=== PATIENT | female | born 1990 | race Caucasian/White ===

== ENCOUNTER 2018-05-16 17:57 | Emergency (ER) | payer OTHER ==
[2018-05-16] MEDS ORDERED: KETOROLAC 30 MG INJ IM (19:34)
[2018-05-16 19:45] LABS: URINE PH (Dip) POC 7.5 (5.0-8.5)
[2018-05-16 19:45] LABS: URINE BLOOD (Dip) POC 2+ (NEGATIVE); URINE GLUCOSE (Dip) POC Negative (NEGATIVE); URINE KETONES (Dip) POC Negative (NEGATIVE); URINE LEUKOCYTE EST (Dip) POC 1+ (NEGATIVE); URINE NITRITE (Dip) POC Negative (NEGATIVE); URINE TOTAL PROTEIN POC 1+ (NEGATIVE)
[2018-05-16 20:00] LABS: ADD MAN DIFF? NO
[2018-05-16 20:02] LABS: BASOPHIL # 0.1 10^3/ul (0.0-0.1); BASOPHILS % 0.7 % (0.0-2.0); EOSINOPHILS # 0.3 10^3/ul (0.0-0.5); EOSINOPHILS % 2.3 % (0.0-7.0); HEMATOCRIT 38.4 % (37.0-47.0); HEMOGLOBIN 12.5 g/dl (12.0-16.0); LYMPHOCYTES % 18.4 % (15.0-51.0); MEAN CORPUSCULAR HEMOGLOBIN 29.8 pg (29.0-33.0); MEAN CORPUSCULAR HGB CONC 32.6 g/dl (32.0-37.0); MEAN CORPUSCULAR VOLUME 91.4 fl (82.0-101.0); MEAN PLATELET VOLUME 9.5 fl (7.4-10.4); MONOCYTE # 0.6 10^3/ul (0.3-0.9); MONOCYTES % 5.4 % (0.0-11.0); NEUTROPHIL # 7.7 10^3/ul (1.6-7.5); NEUTROPHILS % 71.9 % (39.0-77.0); PLATELET COUNT 344 10^3/UL (140-415); RED CELL DISTRIBUTION WIDTH 13.1 % (11.5-14.5)
[2018-05-16 20:02] LABS: WHITE BLOOD COUNT 10.7 10^3/ul (4.8-10.8)
[2018-05-16] MEDS: KETOROLAC 15 MG INJ IV (20:06)
[2018-05-16] MEDS: SOD CHLORIDE 0.9% 1,000 ML IV (20:06)
[2018-05-16] MEDS: ACETAMINOPHEN 325 MG TAB PO (20:06)
[2018-05-16 20:24] LABS: ALANINE AMINOTRANSFERASE 10 IU/L (13-69); ALBUMIN 4.6 g/dl (3.3-4.9); ALBUMIN/GLOBULIN RATIO 0.97; ALKALINE PHOSPHATASE 91 IU/L (42-121); ANION GAP 9 (5-13); ASPARTATE AMINO TRANSFERASE 20 IU/L (15-46); BILIRUBIN,INDIRECT 0.5 mg/dl (0-1.1); BILIRUBIN,TOTAL 0.5 mg/dl (0.2-1.3); BLOOD UREA NITROGEN 10 mg/dl (7-20); CARBON DIOXIDE 26 mmol/L (21-31); CHLORIDE 103 mmol/L (97-110); CREATININE 0.73 mg/dl (0.44-1.00); Estimated GFR > 60 mL/min (>60); GLUCOSE 99 mg/dl (70-220); POTASSIUM 3.7 mmol/L (3.5-5.1); SODIUM 138 mmol/L (135-144); TOTAL PROTEIN 9.3 g/dl (6.1-8.1)
[2018-05-16 21:10] LABS: ERYTHROCYTE SEDIMENTATION RATE 71 mm/Hr (0-20)
[2018-05-18 17:41] LABS: ASO TITER 158 IU/mL (<200)
== END 2018-05-16 22:46 | disposition home or self-care (01) ==
LOC: FTE 17:57
DX: L52 Erythema nodosum (principal); N30.01 Acute cystitis with hematuria
CPT/HCPCS: 36415; 71046; 80053; 81003; 81025; 85025; 85651; 86060; 96374; 99284-25